=== PATIENT | female | born 1970 | race Caucasian/White ===

== ENCOUNTER 2017-07-29 15:32 | Emergency (ER) | payer MEDICAID ==
--- NOTE | 2017-07-29 15:57 | ED Physician Documentation ---
PD HPI URI - Stated complaint Stated Complaint: FLU like symptoms - Chief complaint Chief Complaint: Fever - History obtained from History obtained from: Patient - History of Present Illness Timing - onset: How many days ago Timing duration: Days (2-3) Timing details: Abrupt onset, Still present Associated symptoms: Fever (moderate), Nasal congestion, Sore throat, Dry cough , Chest pain (hurting with cough and now with shoulder/arm movement), Dyspnea ( feeling that she can't get a deep breath) Contributing factors: No: Sick contact, Travel, COPD / asthma Worsened by: Activity, Other (coughing) Similar symptoms before: Has not had sx before Recently seen: Not recently seen Review of Systems Constitutional: reports: Fever, Chills, Myalgias, Fatigue Nose: reports: Rhinorrhea / runny nose, Congestion Throat: reports: Sore throat Cardiac: reports: Chest pain / pressure Respiratory: reports: Dyspnea, Cough, Wheezing GI: denies: Nausea, Vomiting, Diarrhea Skin: denies: Rash PD PAST MEDICAL HISTORY - Past Medical History Cardiovascular: High cholesterol Respiratory: None Neuro: None Endocrine/Autoimmune: Type 2 diabetes GI: GERD, Chronic constipation : None Psych: Depression, Anxiety, Panic attacks, Obsessive compulsive disorder, Eating disorder Musculoskeletal: None Derm: None - Past Surgical History 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 - Present Medications Home Medications: Ambulatory Orders Medication Instructions Recorded Confirmed Gabapentin [Neurontin] 800 mg PO TID 03/26/13 02/18/15 [place] Carbonate [Lithobid] 300 mg PO BID 03/26/13 02/18/15 Metformin HCl [Fortamet] 500 mg PO BID 03/26/13 02/18/15 PARoxetine [Paxil] 40 mg PO DAILY 03/26/13 02/18/15 Omeprazole 20 mg PO DAILY 02/18/15 02/18/15 Albuterol Sulf [Ventolin Hfa 1 - 2 puffs INH Q4HR PRN #1 inhaler 07/29/17 Inhaler] Benzonatate [Tessalon] 100 mg PO TID PRN #25 capsule 07/29/17 Dexamethasone [Decadron] 4 mg PO DAILY #5 tablet 07/29/17 HYDROcod/ACETAM 5/325 [[place] 5/325] 1 tab PO Q6H PRN #12 tablet 07/29/17 - Allergies Allergies/Adverse Reactions: Allergies Allergy/AdvReac Type Severity Reaction Status Date / Time Sulfa (Sulfonamide Allergy Intermediate Respiratory Verified 03/26/13 11:37 Antibiotics) - Social History Does the pt smoke?: No Smoking Status: Never smoker Does the pt drink ETOH?: No Does the pt have substance abuse?: No - Immunizations Immunizations are current?: No Immunizations: TDAP >10years/unknown PD ED PE NORMAL - Vitals Vital signs reviewed: Yes - General General: Alert and oriented X 3, No acute distress, Well developed/nourished - HEENT HEENT: Ears normal, Pharynx benign - Neck Neck: Supple, no meningeal sign, No adenopathy - Cardiac Cardiac: RRR, No murmur - Respiratory Respiratory: Clear bilaterally (hint of wheezing expiratory. ) - Abdomen Abdomen: Soft, Non tender - Derm Derm: Normal color, Warm and dry - Extremities Extremities: No deformity, No tenderness to palpate, No edema, No calf tenderness / cord - Neuro Neuro: Alert and oriented X 3, No motor deficit, Normal speech Results - Vitals Vitals: Vital Signs - 24 hr 07/29/17 07/29/17 07/29/17 15:39 16:22 17:20 Temperature 36.9 C 37.4 C Heart Rate 93 90 101 H Respiratory 22 20 21 Rate Blood Pressure 173/95 H 131/69 H O2 Saturation 100 97 Oxygen O2 Source Room air - Labs Labs: Laboratory Tests 07/29/17 15:43 Influenza A (Rapid) Negative Influenza B (Rapid) Negative Influenza Types A,B Ag - PD MEDICAL DECISION MAKING - ED course Complexity details: re-evaluated patient (she felt that an inhaler would help her, though not really wheezy. Sounds like viral URi otherwise. ), considered differential, d/w patient Departure - Departure Disposition: 01 Home, Self Care Clinical Impression: Upper respiratory infection Qualifiers: URI type: unspecified URI Qualified Code(s): J06.9 - Acute upper respiratory infection, unspecified Condition: Stable Record reviewed to determine appropriate education?: Yes Instructions: ED Upper Resp Infec No Abx Tx Follow-Up: Pratibha Pate MD [Primary Care Provider] - Prescriptions: Albuterol Sulf [Ventolin Hfa Inhaler] 1 - 2 puffs INH Q4HR PRN #1 inhaler PRN Reason: Shortness Of Air/Wheezing Benzonatate [Tessalon] 100 mg PO TID PRN #25 capsule PRN Reason: Cough Dexamethasone [Decadron] 4 mg PO DAILY #5 tablet HYDROcod/ACETAM 5/325 [[place] 5/325] 1 tab PO Q6H PRN #12 tablet PRN Reason: Pain Comments: Drink lots of fluids. Tylenol or ibuprofen if needed for fevers and pains. Your flu test here is negative which mostly precludes it. There are sometimes some false negatives. Presuming other viral illness, have you use albuterol inhaler 2 puffs 4 times a day for the next week or so. Decadron daily for inflammation of the bronchioles for the next 5 days. Use Tessalon if needed for cough. Add hydrocodone if needed for pain or cough. Recheck if not improving over the next few days. Discharge Date/Time: 07/29/17 17:20
[2017-07-29] MEDS ORDERED: ALBUTEROL NEB 2.5 MG/3 ML INH STA (16:08)
[2017-07-29] MEDS ORDERED: HYDROcod/ACETAM 5/325 MG TABLET PO STA (16:11)
[2017-07-29] MEDS ORDERED: DEXAMETHASONE 10 MG/ML VIAL PO STA (16:11)
[2017-07-29] MEDS ORDERED: BENZONATATE 100 MG CAPSULE PO STA (16:11)
[2017-07-29 17:21] VITALS: BP 131/69
== END 2017-07-29 17:20 | disposition home or self-care (01) ==
LOC: ED 15:32
DX: J06.9 Acute upper respiratory infection, unspecified (principal); E11.9 Type 2 diabetes mellitus without complications; E78.00 Pure hypercholesterolemia, unspecified; Z79.84 Long term (current) use of oral hypoglycemic drugs
CPT/HCPCS: 87275; 87276; 94640; 94664; 99283; A9270; J7613

== ENCOUNTER 2018-04-15 12:49 | Emergency (ER) | payer MEDICAID ==
[2018-04-15 13:29] VITALS: BP 146/87
--- NOTE | 2018-04-15 14:31 | ED Physician Documentation ---
History of Present Illness - Stated complaint Stated Complaint: MED REFILL - Chief complaint Chief Complaint: General - History obtained from History obtained from: Patient, Family (mother) - Additonal information Additional information: The patient is a 47-year-old female with a history of Prader-Willi syndrome, diabetes, depression, anxiety, and obsessive-compulsive disorder, who presents for refill of her prescription for lithium. She has recently changed medical providers, and has run out of her normal lithium dose. She could not be seen by her new primary physician today, so was sent to the emergency department for prescription refill. She is accompanied in the emergency department by her mother who provides the history. Review of Systems Constitutional: denies: Fever Throat: denies: Sore throat Respiratory: denies: Dyspnea, Cough GI: denies: Nausea, Vomiting Neurologic: denies: Headache PD PAST MEDICAL HISTORY - Past Medical History Cardiovascular: High cholesterol Respiratory: None Endocrine/Autoimmune: Type 2 diabetes GI: GERD, Chronic constipation : None Psych: Depression, Anxiety, Panic attacks, Obsessive compulsive disorder, Eating disorder Musculoskeletal: None Derm: None - Past Surgical History Past Surgical History: Yes /THROUGH OPERATOR: Hysterectomy - Present Medications Home Medications: Ambulatory Orders Medication Instructions Recorded Confirmed Gabapentin [Neurontin] 800 mg PO TID 03/26/13 02/18/15 [place] Carbonate [Lithobid] 300 mg PO QDBREAKFAST 03/26/13 02/18/15 Metformin HCl [Fortamet] 500 mg PO BID 03/26/13 02/18/15 PARoxetine [Paxil] 40 mg PO DAILY 03/26/13 02/18/15 Omeprazole 20 mg PO DAILY 02/18/15 02/18/15 Albuterol Sulf [Ventolin Hfa 1 - 2 puffs INH Q4HR PRN #1 inhaler 07/29/17 Inhaler] Benzonatate [Tessalon] 100 mg PO TID PRN #25 capsule 07/29/17 Dexamethasone [Decadron] 4 mg PO DAILY #5 tablet 07/29/17 HYDROcod/ACETAM 5/325 [[place] 5/325] 1 tab PO Q6H PRN #12 tablet 07/29/17 [place] Carbonate 300 mg PO BID #100 capsule 04/15/18 [place] Carbonate 600 mg PO QDDINNER 04/15/18 04/15/18 - Allergies Allergies/Adverse Reactions: Allergies Allergy/AdvReac Type Severity Reaction Status Date / Time Sulfa (Sulfonamide Allergy Intermediate Respiratory Verified 04/15/18 13:31 Antibiotics) - Social History Does the pt smoke?: No Smoking Status: Never smoker Does the pt drink ETOH?: No Does the pt have substance abuse?: No - Immunizations Immunizations are current?: No Immunizations: TDAP >10years/unknown PD ED PE NORMAL - Vitals Vital signs reviewed: Yes (initially hypertensive.) - General General: Alert and oriented X 3, Well developed/nourished - HEENT HEENT: Atraumatic - Respiratory Respiratory: No respiratory distress - Neuro Neuro: Alert and oriented X 3, Normal speech Results - Vitals Vitals: Oxygen O2 Source Room air PD MEDICAL DECISION MAKING - ED course Complexity details: considered differential, d/w patient, d/w family ED course: The patient presents with no medical complaints, but needs a prescription for lithium which she has been on long-term. A prescription was written for 300 mg every morning and 600 mg every evening, as per the instructions on her most recent lithium prescription bottle. Her mother reassures me that an appointment has been scheduled with her primary physician. Departure - Departure Disposition: 01 Home, Self Care Clinical Impression: Encounter for medication refill, History of Prader-Willi syndrome Condition: Stable Instructions: [place] tablets or capsules Follow-Up: [facility] [Provider Group] Prescriptions: [place] Carbonate 300 mg PO BID #100 capsule Comments: Take lithium twice daily as prescribed. Follow-up with your primary physician within 10 days. Call to schedule appointment. Return to the emergency department if any complications or worsening symptoms. Discharge Date/Time: 04/15/18 14:51
== END 2018-04-15 14:51 | disposition home or self-care (01) ==
LOC: ED 12:49
DX: Z76.0 Encounter for issue of repeat prescription (principal); F42.9 Obsessive-compulsive disorder, unspecified; F32.9 Major depressive disorder, single episode, unspecified; Q87.1 Congenital malformation syndromes predominantly associated with short stature; E11.9 Type 2 diabetes mellitus without complications; Z79.84 Long term (current) use of oral hypoglycemic drugs
CPT/HCPCS: 99283

== ENCOUNTER 2018-06-13 09:29 | Outpatient (CLI) | payer MEDICAID ==
[2018-06-13 12:40] LABS: BASOPHILS % (AUTO) 0.4 %; EOSINOPHILS # (AUTO) 0.2 10^3/uL (0.0-0.7); EOSINOPHILS % (AUTO) 3.4 %; HGB - HEMOGLOBIN 14.1 g/dL (12.0-16.0); LYMPHOCYTES # (AUTO) 2.4 10^3/uL (1.5-3.5); LYMPHOCYTES % (AUTO) 37.7 %; MEAN CORPUSCULAR HGB CONC 33.8 g/dL (32.0-36.0); MEAN CORPUSCULAR VOLUME 88.9 fL (81.0-99.0); MEAN PLATELET VOLUME 7.5 fL (7.9-10.8); MONOCYTES # (AUTO) 0.5 10^3/uL (0.0-1.0); MONOCYTES % (AUTO) 8.5 %; NEUTROPHILS # (AUTO) 3.2 10^3/uL (1.5-6.6); PLT - PLATELET COUNT 274 10^3/uL (130-450); RED BLOOD COUNT 4.69 10^6/uL (4.20-5.40); RED CELL DISTRIBUTION WIDTH 13.1 % (12.0-15.0); WHITE BLOOD COUNT 6.3 x10^3/uL (4.8-10.8)
[2018-06-13 13:38] LABS: THYROID STIMULATING HORMONE 1.61 uIU/mL (0.34-5.60)
[2018-06-13 13:49] LABS: FOLATE 21.66 ng/mL (5.90 - >24.8)
[2018-06-13 13:51] LABS: LITHIUM 0.35 mmol/L
[2018-06-13 15:23] LABS: HB2 TOTAL 15.3 g/dL; HEMOGLOBIN A1C 0.77 g/dL; HEMOGLOBIN A1C % 6.8 % (4.6-6.2)
[2018-06-13 15:40] LABS: ALBUMIN/GLOBULIN RATIO 1.1 (1.0-2.2); ALKALINE PHOSPHATASE 47 IU/L (42-121); ALT ALANINE AMINOTRANSFERASE 22 IU/L (10-60); AST ASPARTATE AMINOTRANSFERASE 20 IU/L (10-42); BILIRUBIN,TOTAL 0.4 mg/dL (0.2-1.0); BUN - BLOOD UREA NITROGEN 19 mg/dL (6-20); CALCIUM 9.2 mg/dL (8.5-10.3); CARBON DIOXIDE - CO2 22 mmol/L (21-32); CHLORIDE 105 mmol/L (101-111); CHOLESTEROL 251 mg/dL; GFR - MDRD 60 (>89); GLUCOSE 146 mg/dL (70-100); HDL CHOLESTEROL 42 mg/dL; SODIUM 135 mmol/L (135-145); TOTAL PROTEIN 7.5 g/dL (6.7-8.2)
[2018-06-13 16:19] LABS: LDL CHOLESTEROL,DIRECT 142 mg/dL; LDLD/HDL RATIO 3.4 (<4.4)
== END 2018-06-13 23:59 | disposition home or self-care (01) ==
LOC: LAB.N 09:29
PROVIDERS: ATTEND Nurse Practitioner
DX: E11.9 Type 2 diabetes mellitus without complications (principal); Z79.899 Other long term (current) drug therapy; E55.9 Vitamin D deficiency, unspecified; R53.83 Other fatigue
CPT/HCPCS: 36415; 80053; 80061; 80178; 82043; 82306; 82607; 82746; 83036; 83721; 84443; 85025

== ENCOUNTER 2018-06-13 10:45 | Outpatient (CLI) | payer MEDICAID ==
--- NOTE | 2018-06-14 01:27 | XRAY Report ---
Reason: LUMBAGO Procedure Date: 06/13/2018 Accession Number: [id number] / [id number] Procedure: XRN - Lumbar Spine 2 View CPT Code: FULL RESULT: EXAM: LUMBOSACRAL SPINE RADIOGRAPHY EXAM DATE: 06/13/2018 11:15 AM. CLINICAL HISTORY: LUMBAGO. COMPARISONS: None. TECHNIQUE: 3 views. FINDINGS: Alignment: Normal. No spondylolisthesis or scoliosis. Bones: Five [id number] lumbar vertebral bodies are present. No fractures or bone lesions. Disks: Mild degenerative disk disease. Facets: Mild facet arthropathy. Sacroiliac Joints: Unremarkable. Soft Tissues: Normal. The visualized bowel gas pattern is normal. IMPRESSION: Mild degenerative changes. No evidence of fracture. RADIA
== END 2018-06-13 10:46 | disposition home or self-care (01) ==
LOC: DI.N 10:45
PROVIDERS: ATTEND Nurse Practitioner
DX: M51.36 Other intervertebral disc degeneration, lumbar region (principal); E11.9 Type 2 diabetes mellitus without complications; E55.9 Vitamin D deficiency, unspecified; R53.83 Other fatigue; Z79.899 Other long term (current) drug therapy
CPT/HCPCS: 36415; 72100; 80053; 80061; 80178; 82043; 82306; 82607; 82746; 83036; 83721; 84443; 85025

== ENCOUNTER 2018-06-16 11:26 | Outpatient (CLI) | payer MEDICAID ==
--- NOTE | 2018-06-17 09:08 | Mammography Report ---
Reason: MAMMOGRAPHIC SCREENING FOR BREAST CANCER Procedure Date: 06/16/2018 Accession Number: [id number] / [id number] Procedure: MGN - Screening Mammo Dig Bilat CPT Code: FULL RESULT: EXAM: Screening Mammo Dig Bilat DATE: 06/16/2018 11:48 AM CLINICAL HISTORY: Routine screening. Baseline mammogram TECHNIQUE: Bilateral CC and MLO views were obtained. COMPARISON: None FINDINGS: There is extensive fatty replacement of the breast tissue. No suspicious masses, clustered microcalcifications, or regions of architectural distortion are identified. IMPRESSION: Benign findings RECOMMENDATION: Routine annual screening unless otherwise clinically indicated. BIRADS CATEGORY 2: Benign findings STANDARD QUALIFYING STATEMENTS: 1. This examination was reviewed with the aid of Computer-Aided Detection (CAD). 2. A negative or benign imaging report should not delay biopsy if clinically suspicious findings are present. Consider surgical consultation if warrented. More than 5% of cancers are not identified by imaging. 3. Dense breasts may obscure an underlying neoplasm.
== END 2018-06-16 11:27 | disposition home or self-care (01) ==
LOC: DI.N 11:26
PROVIDERS: ATTEND Nurse Practitioner
DX: Z12.31 Encounter for screening mammogram for malignant neoplasm of breast (principal)
CPT/HCPCS: 77067

== ENCOUNTER 2018-09-26 10:51 | Outpatient (CLI) | payer MEDICAID | END 2018-09-26 10:52 | disposition home or self-care (01) | LOC: SC 10:51 | PROVIDERS: ATTEND Internal Medicine Pulmonary Disease | DX: G47.10 Hypersomnia, unspecified (principal); R06.83 Snoring; G47.8 Other sleep disorders; R06.81 Apnea, not elsewhere classified | CPT/HCPCS: 99203; 99212 ==

== ENCOUNTER 2019-01-19 10:33 | Outpatient (CLI) | payer MEDICAID ==
[2019-01-19 14:12] LABS: HB2 TOTAL 13.7 g/dL; HEMOGLOBIN A1C 0.71 g/dL; HEMOGLOBIN A1C % 6.9 % (4.6-6.2)
== END 2019-01-19 23:59 | disposition home or self-care (01) ==
LOC: LAB.N 10:33
PROVIDERS: ATTEND Nurse Practitioner Gerontology
DX: E11.9 Type 2 diabetes mellitus without complications (principal)
CPT/HCPCS: 36415; 83036

== ENCOUNTER 2019-04-18 08:06 | Outpatient (CLI) | payer MEDICAID ==
[2019-04-18 14:10] LABS: HB2 TOTAL 13.6 g/dL; HEMOGLOBIN A1C 0.79 g/dL; HEMOGLOBIN A1C % 7.5 % (4.6-6.2)
== END 2019-04-18 23:59 | disposition home or self-care (01) ==
LOC: LAB.N 08:06
PROVIDERS: ATTEND Nurse Practitioner Gerontology
DX: E11.9 Type 2 diabetes mellitus without complications (principal)
CPT/HCPCS: 36415; 83036

== ENCOUNTER 2019-06-15 10:46 | Outpatient (CLI) | payer MEDICAID ==
[2019-06-15 19:27] LABS: LITHIUM 0.21 mmol/L
== END 2019-06-15 23:59 | disposition home or self-care (01) ==
LOC: LAB.N 10:46
PROVIDERS: ATTEND Nurse Practitioner Gerontology
DX: Z79.899 Other long term (current) drug therapy (principal)
CPT/HCPCS: 36415; 80178

== ENCOUNTER 2020-03-18 11:15 | Outpatient (CLI) | payer MEDICAID ==
[2020-03-18 18:44] LABS: LITHIUM 0.38 mmol/L
[2020-03-18 18:56] LABS: CREATININE,URINE 178.7 mg/dL; MICROALBUM/CREATININE RATIO,UR 13.4 ug/mg (<30.0); MICROALBUMIN,URINE 2.4 mg/dL (0-300.0)
[2020-03-18 19:40] LABS: ALBUMIN/GLOBULIN RATIO 1.2 (1.0-2.2); ALKALINE PHOSPHATASE 55 IU/L (42-121); ALT ALANINE AMINOTRANSFERASE 27 IU/L (10-60); AST ASPARTATE AMINOTRANSFERASE 22 IU/L (10-42); BILIRUBIN,TOTAL 0.5 mg/dL (0.2-1.0); BUN - BLOOD UREA NITROGEN 16 mg/dL (6-20); CALCIUM 9.8 mg/dL (8.5-10.3); CARBON DIOXIDE - CO2 18 mmol/L (21-32); CHLORIDE 104 mmol/L (101-111); CHOL/HDL RATIO 7.7 (<4.4); CHOLESTEROL 323 mg/dL; GLUCOSE 211 mg/dL (70-100); HDL CHOLESTEROL 42 mg/dL; SODIUM 133 mmol/L (135-145); TOTAL PROTEIN 7.3 g/dL (6.7-8.2)
[2020-03-18 20:05] LABS: LDL CHOLESTEROL,DIRECT 165 mg/dL; LDLD/HDL RATIO 3.9 (<4.4)
== END 2020-03-18 23:59 | disposition home or self-care (01) ==
LOC: LAB.WCP 11:15
PROVIDERS: ATTEND Family Medicine
DX: I10 Essential (primary) hypertension (principal); E11.9 Type 2 diabetes mellitus without complications; Z79.899 Other long term (current) drug therapy; E78.5 Hyperlipidemia, unspecified
CPT/HCPCS: 36415; 80053; 80061; 80178; 82043; 82570; 83036; 83721; 84443; 85025

== ENCOUNTER 2020-03-21 11:08 | Outpatient (CLI) | payer MEDICAID ==
[2020-03-21 11:29] LABS: BASOPHILS % (AUTO) 0.4 %; EOSINOPHILS # (AUTO) 0.2 10^3/uL (0.0-0.7); EOSINOPHILS % (AUTO) 2.2 %; HGB - HEMOGLOBIN 13.6 g/dL (12.0-16.0); LYMPHOCYTES # (AUTO) 2.6 10^3/uL (1.5-3.5); LYMPHOCYTES % (AUTO) 38.5 %; MEAN CORPUSCULAR HEMOGLOBIN 30.2 pg (27.0-31.0); MEAN CORPUSCULAR HGB CONC 31.6 g/dL (32.0-36.0); MEAN CORPUSCULAR VOLUME 95.3 fL (81.0-99.0); MEAN PLATELET VOLUME 9.3 fL (7.9-10.8); MONOCYTES # (AUTO) 0.5 10^3/uL (0.0-1.0); MONOCYTES % (AUTO) 7.9 %; NEUTROPHILS # (AUTO) 3.4 10^3/uL (1.5-6.6); NEUTROPHILS % (AUTO) 50.7 %; PLT - PLATELET COUNT 256 10^3/uL (130-450); RED BLOOD COUNT 4.51 10^6/uL (4.20-5.40); RED CELL DISTRIBUTION WIDTH 12.2 % (12.0-15.0); WHITE BLOOD COUNT 6.8 x10^3/uL (4.8-10.8)
[2020-03-21 12:39] LABS: HEMOGLOBIN A1c% 9.2 % (4.27-6.07)
== END 2020-03-21 11:09 | disposition home or self-care (01) ==
LOC: LAB 11:08
PROVIDERS: ATTEND Family Medicine
DX: E11.9 Type 2 diabetes mellitus without complications (principal); I10 Essential (primary) hypertension; E78.2 Mixed hyperlipidemia; Z79.899 Other long term (current) drug therapy
CPT/HCPCS: 83036; 85025

== ENCOUNTER 2021-01-25 10:55 | Emergency (ER) | payer MEDICAID ==
[2021-01-25 12:03] LABS: BASOPHILS % (AUTO) 0.5 %; EOSINOPHILS # (AUTO) 0.3 10^3/uL (0.0-0.7); EOSINOPHILS % (AUTO) 3.2 %; HGB - HEMOGLOBIN 14.6 g/dL (12.0-16.0); LYMPHOCYTES # (AUTO) 2.7 10^3/uL (1.5-3.5); LYMPHOCYTES % (AUTO) 33.5 %; MEAN CORPUSCULAR HEMOGLOBIN 29.8 pg (27.0-31.0); MEAN CORPUSCULAR HGB CONC 33.2 g/dL (32.0-36.0); MEAN CORPUSCULAR VOLUME 89.8 fL (81.0-99.0); MEAN PLATELET VOLUME 8.9 fL (7.9-10.8); MONOCYTES # (AUTO) 0.5 10^3/uL (0.0-1.0); MONOCYTES % (AUTO) 6.8 %; NEUTROPHILS # (AUTO) 4.4 10^3/uL (1.5-6.6); NEUTROPHILS % (AUTO) 55.7 %; PLT - PLATELET COUNT 291 10^3/uL (130-450); RED CELL DISTRIBUTION WIDTH 12.3 % (12.0-15.0); WHITE BLOOD COUNT 7.9 x10^3/uL (4.8-10.8)
[2021-01-25 12:09] LABS: VBG PCO2 32.9 mmHg (41-51); VBG PH 7.365 (7.31-7.41)
[2021-01-25 12:10] LABS: VBG BASE EXCESS -5.9 mmol/L (-2 - +2); VBG HCO3 18.4 mmol/L (23-28); VBG OXYGEN SATURATION 89.6 % (60-80); VBG PO2 56.1 mmHg (25-47); VBG TOTAL CO2 19.4 mmol/L (24-29)
[2021-01-25 12:17] LABS: ALBUMIN 3.8 g/dL (3.2-5.5); ALKALINE PHOSPHATASE 60 IU/L (42-121); ALT ALANINE AMINOTRANSFERASE 28 IU/L (10-60); AST ASPARTATE AMINOTRANSFERASE 23 IU/L (10-42); BILIRUBIN,TOTAL 0.7 mg/dL (0.2-1.0); BUN - BLOOD UREA NITROGEN 16 mg/dL (6-20); CALCIUM 9.8 mg/dL (8.5-10.3); CARBON DIOXIDE - CO2 17 mmol/L (21-32); CHLORIDE 105 mmol/L (101-111); GFR - MDRD 59 (>89); GLUCOSE 335 mg/dL (70-100); LIPASE 34 U/L (22-51); POTASSIUM 4.4 mmol/L (3.5-5.0); SODIUM 134 mmol/L (135-145); TOTAL PROTEIN 7.5 g/dL (6.7-8.2)
[2021-01-25] MEDS ORDERED: SODIUM CHLORIDE 0.9% 1,000 ML IV STA (13:04)
[2021-01-25] MEDS ORDERED: INSULIN REGULAR HUMAN 100 UNIT/1 ML 10 ML MDV IVP STA (13:05)
--- NOTE | 2021-01-25 13:08 | ED Physician Documentation ---
History of Present Illness - Stated complaint Stated Complaint: BLOOD SUGAR ISSUES - Chief complaint Chief Complaint: Abd Pain - History obtained from History obtained from: Patient, Family - History of Present Illness Timing: Yesterday - Additonal information Additional information: 50-year-old developmentally delayed female is accompanied here by her mother who indicates that she is the one that usually takes the patient's blood sugar and she took the patient's blood sugar yesterday and it was high and she took it again today and it was up to 400. She is brought a patient in for evaluation. The patient indicates that she has been urinating more than usual and feels some burning when she does you urinate. 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 - Present Medications Home Medications: Ambulatory Orders Medication Instructions Recorded Confirmed Gabapentin [Neurontin] 800 mg PO TID 03/26/13 02/18/15 [place] Carbonate [Lithobid] 300 mg PO QDBREAKFAST 03/26/13 02/18/15 Metformin HCl [Fortamet] 500 mg PO BID 03/26/13 02/18/15 PARoxetine [Paxil] 40 mg PO DAILY 03/26/13 02/18/15 Omeprazole 20 mg PO DAILY 02/18/15 02/18/15 Albuterol Sulf [Ventolin Hfa 1 - 2 puffs INH Q4HR PRN #1 inhaler 07/29/17 Inhaler] Benzonatate [Tessalon] 100 mg PO TID PRN #25 capsule 07/29/17 HYDROcod/ACETAM 5/325 [[place] 5/325] 1 tab PO Q6H PRN #12 tablet 07/29/17 dexAMETHasone [Decadron] 4 mg PO DAILY #5 tablet 07/29/17 [place] Carbonate 300 mg PO BID #100 capsule 04/15/18 [place] Carbonate 600 mg PO QDDINNER 04/15/18 04/15/18 cephALEXin [Keflex] 500 mg PO Q6H #28 cap 01/25/21 - Allergies Allergies/Adverse Reactions: Allergies Allergy/AdvReac Type Severity Reaction Status Date / Time Sulfa (Sulfonamide Allergy Intermediate Respiratory Verified 01/25/21 11:25 Antibiotics) - Social History Does the pt smoke?: No Smoking Status: Never smoker Does the pt drink ETOH?: No Does the pt have substance abuse?: No - Immunizations Immunizations are current?: No Immunizations: TDAP >10years/unknown PD ED PE NORMAL - Vitals Vital signs reviewed: Yes (hypertensive ) - General General: No acute distress, Well developed/nourished, Other (50-year-old overweight female who is cooperative answer some questions out of time sequence.) - HEENT HEENT: Atraumatic, PERRL, EOMI - Neck Neck: Supple, no meningeal sign, No bony TTP - Cardiac Cardiac: RRR, No murmur - Respiratory Respiratory: No respiratory distress, Clear bilaterally - Abdomen Abdomen: Normal bowel sounds, Soft, Non tender, Non distended, No organomegaly - Back Back: No CVA TTP, No spinal TTP - Derm Derm: Normal color, Warm and dry, No rash - Extremities Extremities: No deformity, No calf tenderness / cord - Neuro Neuro: Alert and oriented X 3, research clerk 2-12 intact, No motor deficit, No sensory deficit, Normal speech Eye Opening: Spontaneous Motor: Obeys Commands Verbal: Oriented GCS Score: 15 - Psych Psych: Normal mood, Normal affect Results - Vitals Vitals: Vital Signs - 24 hr 01/25/21 01/25/21 01/25/21 11:14 11:25 14:59 Temperature 36.8 C 36.8 C 37.0 C Heart Rate 82 82 73 Respiratory 20 20 20 Rate Blood Pressure 117/66 117/66 125/89 H O2 Saturation 98 98 100 Oxygen O2 Source Room air - EKG (time done) 1417 Rate: Rate (enter#) (72) Rhythm: NSR Intervals: Prolonged QT (borderline) QRS: Low voltage Compare to prior EKG: Changed from prior EKG (SPT 2-7-15 the previously seen T- wave flattening has resolved. ) Computer interpretation: Agree with computer - Labs Labs: Laboratory Tests 01/25/21 01/25/2101/25/21 11:24 11:56 11:56 WBC 7.9 RBC 4.90 Hgb 14.6 Hct 44.0 MCV 89.8 MCH 29.8 MCHC 33.2 RDW 12.3 Plt Count 291 MPV 8.9 Neut # (Auto) 4.4 Lymph # (Auto) 2.7 [place] # (Auto) 0.5 Eos # (Auto) 0.3 Baso # (Auto) 0.0 Absolute Nucleated RBC 0.00 Nucleated RBC % 0.0 VBG pH VBG pCO2 VBG pO2 VBG HCO3 VBG Total CO2 VBG O2 Saturation VBG Base Excess Sodium 134 L Potassium 4.4 Chloride 105 Carbon Dioxide 17 L Anion Gap 12.0 BUN 16 Creatinine 1.0 Estimated GFR (MDRD) 59 L Glucose 335 H POC Whole Bld Glucose 406 H Calcium 9.8 Total Bilirubin 0.7 AST 23 ALT 28 Alkaline Phosphatase 60 Troponin I High Sens Total Protein 7.5 Albumin 3.8 Globulin 3.7 Albumin/Globulin Ratio 1.0 Lipase 34 Urine Color Urine Clarity Urine pH Ur Specific [place] Urine Protein Urine Glucose (UA) Urine Ketones Urine Occult Blood Urine Nitrite Urine Bilirubin Urine Acetest SMALL H Urine Urobilinogen Ur Leukocyte Esterase Urine RBC Urine WBC Ur Squamous Epith Cells Urine Bacteria Urine Mucus Ur Microscopic Review Urine Culture Comments 01/25/21 01/25/21 01/25/21 11:56 11:56 14:45 WBC RBC Hgb Hct MCV MCH MCHC RDW Plt Count MPV Neut # (Auto) Lymph # (Auto) [place] # (Auto) Eos # (Auto) Baso # (Auto) Absolute Nucleated RBC Nucleated RBC % VBG pH 7.365 VBG pCO2 32.9 L VBG pO2 56.1 H VBG HCO3 18.4 L VBG Total CO2 19.4 L VBG O2 Saturation 89.6 H VBG Base Excess -5.9 L Sodium Potassium Chloride Carbon Dioxide Anion Gap BUN Creatinine Estimated GFR (MDRD) Glucose POC Whole Bld Glucose Calcium Total Bilirubin AST ALT Alkaline Phosphatase Troponin I High Sens 2.3 Total Protein Albumin Globulin Albumin/Globulin Ratio Lipase Urine Color YELLOW Urine Clarity SL. CLOUDY Urine pH 6.0 Ur Specific [place] 1.020 Urine Protein NEGATIVE Urine Glucose (UA) >=1000 H Urine Ketones TRACE Urine Occult Blood NEGATIVE Urine Nitrite POSITIVE H Urine Bilirubin NEGATIVE Urine Acetest Urine Urobilinogen 0.2 (NORMAL) Ur Leukocyte Esterase NEGATIVE Urine RBC 0-5 Urine WBC 6-10 H Ur Squamous Epith Cells FEW Squamous Urine Bacteria Many H Urine Mucus Few Strands Ur Microscopic Review INDICATED Urine Culture Comments INDICATED 01/25/21 14:50 WBC RBC Hgb Hct MCV MCH MCHC RDW Plt Count MPV Neut # (Auto) Lymph # (Auto) [place] # (Auto) Eos # (Auto) Baso # (Auto) Absolute Nucleated RBC Nucleated RBC % VBG pH VBG pCO2 VBG pO2 VBG HCO3 VBG Total CO2 VBG O2 Saturation VBG Base Excess Sodium Potassium Chloride Carbon Dioxide Anion Gap BUN Creatinine Estimated GFR (MDRD) Glucose POC Whole Bld Glucose 193 H Calcium Total Bilirubin AST ALT Alkaline Phosphatase Troponin I High Sens Total Protein Albumin Globulin Albumin/Globulin Ratio Lipase Urine Color Urine Clarity Urine pH Ur Specific [place] Urine Protein Urine Glucose (UA) Urine Ketones Urine Occult Blood Urine Nitrite Urine Bilirubin Urine Acetest Urine Urobilinogen Ur Leukocyte Esterase Urine RBC Urine WBC Ur Squamous Epith Cells Urine Bacteria Urine Mucus Ur Microscopic Review Urine Culture Comments Procedures - IVC sono (time) 1300 Bedside IVC sono: IVC measures (cm) (0.77), Dehydration (est 2+ liters deficit) PD MEDICAL DECISION MAKING - ED course Complexity details: reviewed old records, reviewed results, re-evaluated patient, considered differential, d/w patient, d/w family ED course: 50-year-old female with a history of type 2 diabetes has a markedly elevated blood sugar and symptoms of urinary tract infection. She is dehydrated on interrogation the inferior vena cava on the order of 2 L and she is administered intravenous saline and 10 units of regular insulin. Her sugar comes down to 193 and she has UTI. Departure - Departure Disposition: 01 Home, Self Care Clinical Impression: Dehydration Urinary tract infection Qualifiers: Urinary tract infection type: acute cystitis Hematuria presence: without hematuria Qualified Code(s): N30.00 - Acute cystitis without hematuria Diabetes mellitus out of control Qualifiers: Diabetes mellitus type: type 2 Glycemic state: with hyperglycemia Qualified Code(s): E11.65 - Type 2 diabetes mellitus with hyperglycemia Condition: Stable Instructions: ED Hyperglycemia Diabetic, ED Dehydration, ED UTI Cystitis Female Follow-Up: Mitchell Snyder MD [Primary Care Provider] - Prescriptions: cephALEXin [Keflex] 500 mg PO Q6H #28 cap Discharge Date/Time: 01/25/21 15:50
[2021-01-25 14:53] LABS: BILIRUBIN,URINE NEGATIVE (NEGATIVE); GLUCOSE, URINE (UA) >=1000 mg/dL (NEGATIVE); KETONES,URINE (UA) TRACE mg/dL (NEGATIVE); LEUKOCYTE ESTERASE, URINE NEGATIVE (NEGATIVE); NITRITE,URINE POSITIVE (NEGATIVE); OCCULT BLOOD,URINE NEGATIVE (NEGATIVE); PROTEIN,URINE NEGATIVE (NEGATIVE); UROBILINOGEN,URINE 0.2 (NORMAL) E.U./dL (NORMAL)
[2021-01-25 14:54] LABS: CLARITY,URINE SL. CLOUDY (CLEAR)
[2021-01-25 14:58] LABS: BACTERIA,URINE Many /HPF (None Seen); MUCUS,URINE Few Strands; RBC,URINE 0-5 /HPF (0-5); SQUAMOUS EPITHELIAL CELL,UR FEW Squamous (<= Few)
[2021-01-25 15:00] VITALS: BP 125/89
== END 2021-01-25 15:50 | disposition home or self-care (01) ==
LOC: ED 10:55
DX: N30.00 Acute cystitis without hematuria (principal); E11.65 Type 2 diabetes mellitus with hyperglycemia; Z79.84 Long term (current) use of oral hypoglycemic drugs; E86.0 Dehydration
CPT/HCPCS: 36415; 80053; 81001; 81002; 82803; 83690; 84484; 85025; 87077; 87086; 87181; 93005; 96360; 99283; 99284; J1815; 81003

== ENCOUNTER 2021-07-18 13:20 | Outpatient (CLI) | payer MEDICARE, MEDICAID ==
[2021-07-18 18:47] LABS: BILIRUBIN,URINE NEGATIVE (NEGATIVE); GLUCOSE, URINE (UA) 500 mg/dL (NEGATIVE); KETONES,URINE (UA) NEGATIVE (NEGATIVE); LEUKOCYTE ESTERASE, URINE NEGATIVE (NEGATIVE); NITRITE,URINE NEGATIVE (NEGATIVE); OCCULT BLOOD,URINE NEGATIVE (NEGATIVE); PROTEIN,URINE NEGATIVE (NEGATIVE); UROBILINOGEN,URINE 0.2 (NORMAL) E.U./dL (NORMAL)
[2021-07-18 18:57] LABS: CLARITY,URINE HAZY (CLEAR)
[2021-07-18 18:58] LABS: BACTERIA,URINE Moderate /HPF (None Seen); RBC,URINE 0-5 /HPF (0-5); SQUAMOUS EPITHELIAL CELL,UR RARE Squamous (<= Few); WBC CLUMPS,URINE PRESENT
== END 2021-07-18 23:59 | disposition home or self-care (01) ==
LOC: LAB 13:20
PROVIDERS: ATTEND Nurse Practitioner Family
DX: R30.0 Dysuria (principal)
CPT/HCPCS: 81001; 81003; 87086

== ENCOUNTER 2022-03-25 09:55 | Outpatient (CLI) | payer MEDICARE, MEDICAID ==
[2022-03-25 11:57] LABS: BASOPHILS % (AUTO) 0.4 %; EOSINOPHILS # (AUTO) 0.2 10^3/uL (0.0-0.7); EOSINOPHILS % (AUTO) 3.1 %; HCT - HEMATOCRIT 41.5 % (37.0-47.0); HGB - HEMOGLOBIN 13.3 g/dL (12.0-16.0); LYMPHOCYTES # (AUTO) 2.4 10^3/uL (1.5-3.5); LYMPHOCYTES % (AUTO) 35.4 %; MEAN CORPUSCULAR HEMOGLOBIN 29.8 pg (27.0-31.0); MEAN CORPUSCULAR VOLUME 92.8 fL (81.0-99.0); MEAN PLATELET VOLUME 9.3 fL (7.9-10.8); MONOCYTES # (AUTO) 0.5 10^3/uL (0.0-1.0); MONOCYTES % (AUTO) 6.9 %; NEUTROPHILS # (AUTO) 3.7 10^3/uL (1.5-6.6); NEUTROPHILS % (AUTO) 53.8 %; PLT - PLATELET COUNT 274 10^3/uL (130-450); RED BLOOD COUNT 4.47 10^6/uL (4.20-5.40); RED CELL DISTRIBUTION WIDTH 12.6 % (12.0-15.0); WHITE BLOOD COUNT 6.8 x10^3/uL (4.8-10.8)
[2022-03-25 12:17] LABS: ESTIMATED AVERAGE GLUCOSE 157 mg/dL (70-100); HEMOGLOBIN A1c% 7.1 % (4.27-6.07)
[2022-03-25 12:27] LABS: ALBUMIN 3.9 g/dL (3.2-5.5); ALBUMIN/GLOBULIN RATIO 1.1 (1.0-2.2); ALKALINE PHOSPHATASE 51 IU/L (42-121); ALT ALANINE AMINOTRANSFERASE 20 IU/L (10-60); AST ASPARTATE AMINOTRANSFERASE 17 IU/L (10-42); BILIRUBIN,TOTAL 0.5 mg/dL (0.2-1.0); BUN - BLOOD UREA NITROGEN 20 mg/dL (6-20); CALCIUM 9.6 mg/dL (8.5-10.3); CARBON DIOXIDE - CO2 21 mmol/L (21-32); CHLORIDE 107 mmol/L (101-111); CHOL/HDL RATIO 5.6 (<4.4); CHOLESTEROL 252 mg/dL; CREATININE 1.1 mg/dL (0.4-1.0); GFR - MDRD 53 (>89); GLUCOSE 172 mg/dL (70-100); HDL CHOLESTEROL 45 mg/dL; POTASSIUM 4.4 mmol/L (3.5-5.0); SODIUM 136 mmol/L (135-145); TOTAL PROTEIN 7.4 g/dL (6.7-8.2); TRIGLYCERIDES 430 mg/dL
[2022-03-25 12:29] LABS: THYROID STIMULATING HORMONE 2.85 uIU/mL (0.34-5.60)
[2022-03-25 13:10] LABS: LDL CHOLESTEROL,DIRECT 143 mg/dL; LDLD/HDL RATIO 3.2 (<4.4)
== END 2022-03-25 09:56 | disposition home or self-care (01) ==
LOC: LAB.N 09:55
PROVIDERS: ATTEND Internal Medicine
DX: I10 Essential (primary) hypertension (principal); E78.2 Mixed hyperlipidemia; Z79.899 Other long term (current) drug therapy; E11.9 Type 2 diabetes mellitus without complications
CPT/HCPCS: 36415; 80053; 80061; 80178; 83036; 83721; 84443; 85025

== ENCOUNTER 2023-11-15 09:15 | Outpatient (CLI) | payer MEDICARE, MEDICAID ==
[2023-11-15 12:25] LABS: BASOPHILS # (AUTO) 0.1 10^3/uL (0.0-0.1); BASOPHILS % (AUTO) 0.7 %; EOSINOPHILS # (AUTO) 0.2 10^3/uL (0.0-0.7); EOSINOPHILS % (AUTO) 2.4 %; HCT - HEMATOCRIT 41.4 % (37.0-47.0); HGB - HEMOGLOBIN 13.2 g/dL (12.0-16.0); LYMPHOCYTES # (AUTO) 2.8 10^3/uL (1.5-3.5); LYMPHOCYTES % (AUTO) 32.7 %; MEAN CORPUSCULAR HEMOGLOBIN 29.4 pg (27.0-31.0); MEAN CORPUSCULAR HGB CONC 31.9 g/dL (32.0-36.0); MEAN CORPUSCULAR VOLUME 92.2 fL (81.0-99.0); MEAN PLATELET VOLUME 9.3 fL (7.9-10.8); MONOCYTES # (AUTO) 0.7 10^3/uL (0.0-1.0); MONOCYTES % (AUTO) 8.5 %; NEUTROPHILS # (AUTO) 4.7 10^3/uL (1.5-6.6); NEUTROPHILS % (AUTO) 55.1 %; PLT - PLATELET COUNT 287 10^3/uL (130-450); RED BLOOD COUNT 4.49 10^6/uL (4.20-5.40); RED CELL DISTRIBUTION WIDTH 12.9 % (12.0-15.0); WHITE BLOOD COUNT 8.6 x10^3/uL (4.8-10.8)
[2023-11-15 12:44] LABS: ALBUMIN 4.1 g/dL (3.2-5.5); ALBUMIN/GLOBULIN RATIO 1.2 (1.0-2.2); ALKALINE PHOSPHATASE 64 IU/L (42-121); ALT ALANINE AMINOTRANSFERASE 15 IU/L (10-60); AST ASPARTATE AMINOTRANSFERASE 11 IU/L (10-42); BILIRUBIN,TOTAL 0.4 mg/dL (0.2-1.0); BUN - BLOOD UREA NITROGEN 23 mg/dL (6-20); CALCIUM 10.1 mg/dL (8.5-10.3); CARBON DIOXIDE - CO2 21 mmol/L (21-32); CHLORIDE 106 mmol/L (101-111); CHOL/HDL RATIO 5.6 (<4.4); CHOLESTEROL 242 mg/dL; CREATININE 1.1 mg/dL (0.6-1.3); GFR - MDRD 52 (>89); GLUCOSE 246 mg/dL (74-104); HDL CHOLESTEROL 43 mg/dL; LDL CHOLESTEROL,CALCULATED 139 mg/dL; LDL/HDL RATIO 3.2 (<4.4); POTASSIUM 4.3 mmol/L (3.5-4.5); SODIUM 135 mmol/L (135-145); TOTAL PROTEIN 7.6 g/dL (6.4-8.9); TRIGLYCERIDES 302 mg/dL (48-352); VLDL CHOLESTEROL 60 mg/dL
[2023-11-15 12:52] LABS: ESTIMATED AVERAGE GLUCOSE 180 mg/dL (70-100); HEMOGLOBIN A1c% 7.9 % (4.27-6.07)
[2023-11-15 12:54] LABS: THYROID STIMULATING HORMONE 1.32 uIU/mL (0.34-5.60)
== END 2023-11-15 09:16 | disposition home or self-care (01) ==
LOC: LAB.N 09:15
PROVIDERS: ATTEND Nurse Practitioner Family
DX: E11.65 Type 2 diabetes mellitus with hyperglycemia (principal); Q87.11 Prader-Willi syndrome; I10 Essential (primary) hypertension; E78.2 Mixed hyperlipidemia
CPT/HCPCS: 36415; 80053; 80061; 83036; 83721; 84443; 85025